=== PATIENT | female | born 1940 | race Caucasian/White ===

== ENCOUNTER → 2019-02-01 | Outpatient (CLI) | payer MEDICAID | LOC: RAD 16:19 | DX: S82.031A Displaced transverse fracture of right patella, initial encounter for closed fracture (principal); W19.XXXA Unspecified fall, initial encounter; M25.532 Pain in left wrist ==

== ENCOUNTER → 2019-05-18 | Outpatient (CLI) | payer MEDICARE | LOC: MAMMO 15:15 | DX: Z12.31 Encounter for screening mammogram for malignant neoplasm of breast (principal) ==

== ENCOUNTER → 2019-05-18 | Outpatient (CLI) | payer MEDICARE | LOC: RAD 15:25 | DX: S82.031A Displaced transverse fracture of right patella, initial encounter for closed fracture (principal); G46.4 Cerebellar stroke syndrome; G93.9 Disorder of brain, unspecified; I63.9 Cerebral infarction, unspecified; W19.XXXA Unspecified fall, initial encounter ==

== ENCOUNTER → 2019-06-22 | Outpatient (CLI) | payer MEDICARE ==
[2019-06-22 16:31] LABS: URINE APPEARANCE HAZY; URINE BILIRUBIN NEGATIVE (NEGATIVE); URINE BLOOD NEGATIVE (NEGATIVE); URINE COLOR YELLOW; URINE GLUCOSE NEGATIVE (NEGATIVE); URINE KETONE NEGATIVE (NEGATIVE); URINE LEUKOCYTE ESTERASE TRACE (NEGATIVE); URINE NITRATE POSITIVE (NEGATIVE); URINE PROTEIN(semi-quant) TRACE mg/dL (NEGATIVE); URINE UROBILINOGEN NORMAL (NORMAL)
[2019-06-22 16:32] LABS: URINE MUCUS PRESENT (NOT PRESENT)
== END ==
LOC: LAB 15:20
PROVIDERS: Family Medicine
DX: R30.0 Dysuria (principal)

== ENCOUNTER 2019-06-25 15:00 | Outpatient (RCR) | payer MEDICARE | END 2019-06-25 15:30 | LOC: PT 15:00 | DX: R53.81 Other malaise (principal); W19.XXXA Unspecified fall, initial encounter ==

== ENCOUNTER → 2019-07-15 | Outpatient (CLI) | payer MEDICARE | LOC: RAD 16:15 | DX: M19.072 Primary osteoarthritis, left ankle and foot (principal) ==

== ENCOUNTER → 2019-08-06 | Outpatient (CLI) | payer MEDICARE ==
[2019-08-06 15:50] LABS: BASO # 0.1 (0.02-0.10); EOS # 0.4 (0.04-0.40); EOS % 6.4 % (1.0-5.0); HEMATOCRIT 44.9 % (37.0-47.0); HEMOGLOBIN 14.9 g/dL (12.5-16.0); LYMPH# 0.9 (1.50-4.00); MEAN CELL VOLUME 91 fl (78-100); MEAN CORPUSCULAR HEMOGLOBIN 30 pg (27-31); MEAN CORPUSCULAR HGB CONC 33 g/dL (33-37); MONO # 0.6 (0.20-0.80); NEU # 4.4 (1.40-6.50); PLATELET COUNT 272 K/mm3 (130-400); RED BLOOD COUNT 4.92 M/mm3 (4.10-5.30); RED CELL DISTRIBUTION WIDTH 14.5 % (11.5-14.5); WHITE BLOOD COUNT 6.4 K/mm3 (4.8-10.8)
[2019-08-06 16:02] LABS: POTASSIUM 3.7 mmol/L (3.5-5.1)
[2019-08-06 16:03] LABS: CALCIUM 9.7 mg/dL (8.3-10.5)
[2019-08-06 16:04] LABS: TOTAL PROTEIN 7.5 g/dL (6.2-8.1)
[2019-08-06 16:06] LABS: TOTAL BILIRUBIN 0.6 mg/dL (0.2-1.2)
== END ==
LOC: LAB 15:28
PROVIDERS: Family Medicine
DX: E03.9 Hypothyroidism, unspecified (principal); R10.9 Unspecified abdominal pain

== ENCOUNTER 2019-08-22 14:24 | Emergency (ER) | payer MEDICARE ==
[2019-08-22] MEDS ORDERED: HCTZ 25MG25 MG PO (14:45)
[2019-08-22] MEDS ORDERED: LEVOTHYROXINE125 MCG PO (14:45)
[2019-08-22] MEDS ORDERED: TYLENOL EXTRA500 M2 PO (14:45)
[2019-08-22] MEDS ORDERED: JANUVIA 100MG100 MG PO (14:46)
[2019-08-22] MEDS ORDERED: DITROPAN 5MG TAB5 MG PO (14:46)
[2019-08-22] MEDS ORDERED: ACID REDUCER 1150 MG PO (14:46)
[2019-08-22] MEDS ORDERED: POTASSIUM CHLO20 ME3 PO (14:47)
[2019-08-22] MEDS ORDERED: VENLAFAXINE HY150 MG PO (14:47)
[2019-08-22 15:05] LABS: HEMATOCRIT 47.4 % (37.0-47.0); HEMOGLOBIN 15.7 g/dL (12.5-16.0); MEAN CELL VOLUME 91 fl (78-100); MEAN CORPUSCULAR HEMOGLOBIN 30 pg (27-31); MEAN CORPUSCULAR HGB CONC 33 g/dL (33-37); MEAN PLATELET VOLUME 10.4 fl (7.4-10.4); PLATELET COUNT 302 K/mm3 (130-400); RED CELL DISTRIBUTION WIDTH 14.6 % (11.5-14.5); WHITE BLOOD COUNT 8.2 K/mm3 (4.8-10.8)
[2019-08-22 15:15] LABS: ALBUMIN 4.1 g/dL (3.4-4.8)
[2019-08-22 15:16] LABS: POTASSIUM 3.6 mmol/L (3.5-5.1)
[2019-08-22 15:17] LABS: CALCIUM 9.7 mg/dL (8.3-10.5)
[2019-08-22 15:18] LABS: TOTAL PROTEIN 7.3 g/dL (6.2-8.1)
[2019-08-22 15:20] LABS: TOTAL BILIRUBIN 1.6 mg/dL (0.2-1.2)
[2019-08-22 15:25] LABS: NEUTROPHILS 79 % (42-75)
[2019-08-22 15:26] LABS: LYMPHOCYTE 10 % (20-51); MONOCYTE 9 % (3-10)
[2019-08-22 16:26] LABS: URINE COLOR YELLOW
[2019-08-22 16:27] LABS: URINE APPEARANCE HAZY
[2019-08-22 16:28] LABS: URINE BILIRUBIN NEGATIVE (NEGATIVE); URINE BLOOD TRACE (NEGATIVE); URINE GLUCOSE NEGATIVE (NEGATIVE); URINE KETONE NEGATIVE (NEGATIVE); URINE LEUKOCYTE ESTERASE NEGATIVE (NEGATIVE); URINE NITRATE NEGATIVE (NEGATIVE); URINE PROTEIN(semi-quant) 1+ mg/dL (NEGATIVE); URINE UROBILINOGEN NORMAL (NORMAL)
[2019-08-22 19:05] VITALS: BP 128/79
== END 2019-08-22 19:05 | disposition other institution (70) ==
LOC: ED 14:24
PROVIDERS: Family Medicine
DX: G45.9 Transient cerebral ischemic attack, unspecified (principal); E11.9 Type 2 diabetes mellitus without complications; N39.0 Urinary tract infection, site not specified; Z91.14 Patient's other noncompliance with medication regimen; Z79.84 Long term (current) use of oral hypoglycemic drugs

== ENCOUNTER 2019-08-22 18:52 | Inpatient (IN) | payer MEDICARE ==
[~2019-08-22] VITALS: Ht 160 cm; Wt 85.7 kg
[~2019-08-22 18:52] MED LIST: ACID REDUCER 1150 MG PO; DITROPAN 5MG TAB5 MG PO; HCTZ 25MG25 MG PO; JANUVIA 100MG100 MG PO; LEVOTHYROXINE125 MCG PO; POTASSIUM CHLO20 ME3 PO; TYLENOL EXTRA500 M2 PO; VENLAFAXINE HY150 MG PO
--- NOTE | 2019-08-22 19:28 | NUR ---
TO ROOM 202 VIA W/C FROM ER. SON AND [id number] PRESENT. PATIENT HAS HAD RECENT TROUBLE WITH FEET; WHEN STANDING SHE TENDS TO WALK ON THE OUTSIDE OF FEET. SON STATES "THEY DON'T GO FLAT." PATIENT DOES REPORT CRAMPING THAT TURNS FEET INWARD INTERMITTENTLY.
--- NOTE | 2019-08-22 19:32 | NUR ---
REPORT PROVIDED TO CHANDANA QUIJANO.
[2019-08-22 19:56] VITALS: BP 128/79
--- NOTE | 2019-08-22 21:00 | NUR ---
Pt a/o x 3, answered orientation questions appropriately. Answered admission questions with some hesitation on health. At times pt facial expressions had look of confusion. Son and [id number] at bedside.
--- NOTE | 2019-08-22 21:48 | NUR ---
IV catheter started on 3rd attempt in left wrist, using a 22 gauge IV catheter by Geneva Douglas RN. Tolerated without difficulty. Son and [id number] left facility at 2109. Bed alarm set and call light with in reach of pt.
--- NOTE | 2019-08-22 22:00 | NUR ---
Offered to help pt reposition, pt declined.
[2019-08-22 23:19] VITALS: BP 114/75
--- NOTE | 2019-08-22 23:36 | NUR ---
C/o of lower back and coccyx hurting. Given tylenol 650mg PO per pt request. Given saltine crackers.
--- NOTE | 2019-08-23 01:45 | NUR ---
Q hourly checks done. Bed alarm set and call light with in reach of pt. IV fluids of 1/2 NS infusing at 100mls/hr. When asked pt stated she still has pain in her coccyx. Agreed to reposition. Pt repositioned on to left side. Depends dry, denied need to urinate.
[2019-08-23 02:47] VITALS: BP 108/64
--- NOTE | 2019-08-23 05:40 | NUR ---
C/o of lower back, sacrum and coccyx hurting. Allevyn foam dressing CDI on coccyx. Offered tylenol, declined
[2019-08-23 06:00] VITALS: BP 111/74
--- NOTE | 2019-08-23 06:33 | NUR ---
C/o of IV sit hurting when touched. No redness or swelling noted. IV catheter flushed with normal saline without difficulty. No c/o's of pain voiced when IV catheter flushed. Warm blanket wrapped around left hand, wrist and forearm.
--- NOTE | 2019-08-23 07:45 | NUR ---
REPORT RECEIVED FROM SAMM ELLINGTON
--- NOTE | 2019-08-23 08:00 | NUR ---
PATIENT'S SHIFT ASSESSMENT COMPLETE. PATIENT ALERT AND ORIENTED X4. STATES "I'M FEELING BETTER THAN I DID YESTERDAY" NEURO ASSESSMENT WITHIN NORMAL LIMITS. PERRLA. PATIENT ANSWERS ALL QUESTIONS APPROPRIATELY. SEEMS TO BE TRACKING WELL. PATIENT HAS 1/2 NORMAL SALINE INFUSING AT 100 MLS/HR. PATIENT DENIES ANY PAIN OR DISCOMFORTS AT THIS TIME. STATES "MY BOTTOM WAS REALLY HURTING BUT IT FEELS OKAY RIGHT NOW" PATIENT HAS MEPILEX FOAM TO COCCYX. MEPILEX FOAM TO LEFT LATERAL ANKLE. DENIES SHORTNESS OF BREATH OR DIFFICULTIES BREATHING. PATIENT'S CALL LIGHT WITHIN REACH. CHAIR ALARM ON.
--- NOTE | 2019-08-23 08:30 | NUR ---
SAMM OLSEN REPORTS GOING INTO PATIENT'S ROOM TO GIVE MEDICATIONS. REPORTS PATIENT HAD MOUTH FULL OF FOOD. REPORTS THAT PATIENT DIDN'T PUT IN UPPER DENTURES BEFORE EATING BREAKFAST WAS HAVING A HARD TIME CHEWING FOOD. REPORTED THAT SHE KEPT FOOD IN MOUTH AND INSTEAD OF FINISHING BITE OR SPITTING IT OUT JUST CONTINUED TO TAKE BITES OF FOOD AND HAD MOUTH FULL OF FOOD. PATIENT ASSISTED WITH CLEANING FOOD OUT OF MOUTH AND PUTTING IN TOP DENTURES. PER REPORT PATIENT SWALLOWED PILLS FINE AND DID OKAY WITH SWALLOWING AFTER.
[2019-08-23 11:00] VITALS: BP 134/80
--- NOTE | 2019-08-23 14:54 | NUR ---
IN TO SEE PATIENT. PROTONIX ORDERED. NOTIFIED THAT ST IS COMING IN TO WATCH PATIENT EAT MEAL TOMORROW. NOTIFIED THAT PATIENT IS NOT ON ANY BLOOD THINNER AND THAT ACCORDING TO PATIENT'S HOME MEDICATION LIST PATIENT TAKES EFFEXOR. REPORTS THAT SHE IS WAITING FOR ECHO AND CAROTID DOPPLER TO COME BACK BEFORE ORDERING BLOOD THINNER AND IS GOING TO ORDER EFFEXOR.
--- NOTE | 2019-08-23 15:30 | NUR ---
PATIENT SIGNED DPOA PAPERWORK AT THIS TIME. THIS NUE AND LUCÍA SANDERSON WITNESSING. NOTARY PRESENT.
[2019-08-23 15:32] VITALS: BP 127/78
[2019-08-23 18:22] VITALS: BP 127/62
--- NOTE | 2019-08-23 19:10 | NUR ---
Report received from Shannon QUIJANO. Up in recliner watching TV. A/O x4. Denies pain. 1/2 NS infusing via pump at 100 ML/HR. Site to [facility] patent. Assessment completed. States has an occasional cough of "clear sputum". Up with 2:1 assist and walker. Gait unsteady, needs cueing and redirection with using walker. Takes hand off walker and tries to use furniture, tries to use walker to pull herself up from sitting to standing position and tries to sit down too quickly before reaching the toilet, chair or bed. Mepilex dressing CDI to Coccyx region.
--- NOTE | 2019-08-23 19:15 | NUR ---
REPORT GIVEN TO LEE MILLS LPN
--- NOTE | 2019-08-23 21:32 | NUR ---
Had been incontinent and up to void x3 since 1899. Mainly incontinent in brief and voided 100 ML of clear yellow urine in collection container. Neelima cares provided by staff. Assisted to bed with bed alarm on. Call light in reach. SCD's in place to BLE.
[2019-08-23 22:40] VITALS: BP 147/77
[2019-08-24 02:38] VITALS: BP 152/85
--- NOTE | 2019-08-24 03:44 | NUR ---
New bag of IVF hung. Rests with eyes closed. Calls for assist to BR PRN and is incontinent of urine each time.
--- NOTE | 2019-08-24 06:06 | NUR ---
Awaken for vital signs and AM medications. Requests analgesic. States has pain in her stomach. Tylenol taken with AM medications. Swallows without difficulty. Has been incontinent of urine each time she has been up to BR. A/O x4 but continues to need cueing and instruction for safe transfers.
[2019-08-24 06:13] VITALS: BP 149/71
[2019-08-24 07:10] LABS: BASO # 0.1 (0.02-0.10); EOS # 0.4 (0.04-0.40); EOS % 6.4 % (1.0-5.0); HEMATOCRIT 41.5 % (37.0-47.0); HEMOGLOBIN 13.6 g/dL (12.5-16.0); LYMPH# 0.9 (1.50-4.00); MEAN CELL VOLUME 92 fl (78-100); MEAN CORPUSCULAR HEMOGLOBIN 30 pg (27-31); MEAN CORPUSCULAR HGB CONC 33 g/dL (33-37); MEAN PLATELET VOLUME 10.7 fl (7.4-10.4); MONO # 0.7 (0.20-0.80); NEU # 3.8 (1.40-6.50); PLATELET COUNT 266 K/mm3 (130-400); RED BLOOD COUNT 4.52 M/mm3 (4.10-5.30); RED CELL DISTRIBUTION WIDTH 14.5 % (11.5-14.5); WHITE BLOOD COUNT 5.8 K/mm3 (4.8-10.8)
[2019-08-24 07:13] LABS: ALBUMIN 3.3 g/dL (3.4-4.8); POTASSIUM 3.7 mmol/L (3.5-5.1)
[2019-08-24 07:16] LABS: TOTAL PROTEIN 6.2 g/dL (6.2-8.1)
[2019-08-24 07:17] LABS: TOTAL BILIRUBIN 0.6 mg/dL (0.2-1.2)
--- NOTE | 2019-08-24 07:30 | NUR ---
Report to Teresa QUIJANO.
--- NOTE | 2019-08-24 07:42 | NUR ---
Dr. Locke at bedside.
--- NOTE | 2019-08-24 09:10 | NUR ---
Pt chair alarm sounding. This nurse enters room and pt had transferred self from chair to bed was partially side ways with legs still hanging off bed. Pt educated on safety and use of call light and staff asssitance. Pt assisted into bed and bed alarm set and call light in reach
[2019-08-24 11:11] VITALS: BP 128/73
[2019-08-24 15:15] VITALS: BP 133/61
--- NOTE | 2019-08-24 16:00 | NUR ---
Dressing to coccyx removed at time of shower this afternoon. Reports pain to coccyxy. Left side of sacrum is reddened, skin is intact and blanchable. Right side of sacrum is reddened, open area with sheering like appearance noted. Mepilex applied to right side of sacrum. Education provided, instructed patient to turn side to side every two hours while in bed. Patient verbalizes understanding and denies questions. Turns herself on to right side with pressure off of open reddened area. Fall precautions in place.
--- NOTE | 2019-08-24 18:05 | NUR ---
Dr. Locke at bedside to discuss plan of care with patient and son.
[2019-08-24 18:33] VITALS: BP 136/83
--- NOTE | 2019-08-24 20:28 | NUR ---
ASSMNT COMPLETE, PT APPEARS TO BE CONFUSED BUT PLEASANT, KNOWS SHE ISN'T AT HOME BUT UNSURE OF TOWN AND DATE, IS FORCEFULLY COUGHING, UNPRODUCTIVE, DENIES PAIN, CALL LIGHT W/I REACH
[2019-08-24 23:08] VITALS: BP 160/78
[2019-08-25] VITALS (7 sets, daily range): BP systolic 127–172; BP diastolic 62–87
--- NOTE | 2019-08-25 10:40 | NUR ---
Pt's son, Trevor, came by to speak with Case Management about pt's discharge plan. Pt told son that she was going to be going home on 08/[address] Locke and son have concerns for pt returning to her home alone. They feel pt would be more appropriate for [facility] level of care at this time. Pt recently sold her home in [place] and moved to [place] and lives alone in an apartment. lead project manager has concerns because pt has been hoarding things and using oven for storage. Pt's son lives [place] [address] [facility]. Pt is apprehensive about going to a NH because of things she has heard in the news. 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 Son still feels as though pt in not safe to return home alone and is unable to have pt come live with him and his . Pt does not have the finances to self-pay. DPOA for medical and finances was signed for pt's son. Trevor was able to get access to pt's banking documents. Medicaid application was completed 08/24 with son's assistance. Application faxed 08/24. Pt's son would prefer pt in [facility] close to him. Pt has some sisters who live in [place] and Trevor would like his mother placed near enough for them to visit. Son's first choice for NH would be in [facility]. Spoke with [facility] and right now they are not a preferred provider through [facility]. Son's second choice [facility] in [facility]. Call placed to [facility], however they do not have any bed availability at this time. [facility] in [place] is son's third choice but lengthy distance (23miles) from his home. Called placed to [place] and clinical information faxed. Spoke with Florecita, from [facility], on 08/24. Pt's IP stay is approved for 3 days. Re-review needed 08/25.
--- NOTE | 2019-08-25 15:27 | NUR ---
Updated clinical faxed to Florecita, with [facility]. Spoke with Mike from [facility] and they are working on getting pre-certification for SNF LOC for pt with [facility]. REF#[id number]. Discussed this with Florecita and she will call Mike to make sure he is putting the request in correctly. Son and pt updated on current plan of care. [facility] is son's second choice. Left message for [facility], [facility], following up on possible admission to them tomorrow. Pt's cuydtrer-pg-zoo, Melany, is planning on visiting [facility] this evening.
--- NOTE | 2019-08-25 16:10 | NUR ---
Dr. Locke notified of bradycardia.
--- NOTE | 2019-08-25 16:35 | NUR ---
TRANSIT COACH OPERATOR reports patient is having difficulty speaking. Patient is resting supine in bed. Patient has expressive aphasia and slurred speech. Oriented to self only. Dr. Locke notified. New orders obtained.
--- NOTE | 2019-08-25 16:50 | NUR ---
Angélica Veliz PA-C at bedside.
--- NOTE | 2019-08-25 16:53 | NUR ---
Patient to CT via wheelchair.
[2019-08-25 16:54] LABS: EOS # 0.4 (0.04-0.40); EOS % 5.6 % (1.0-5.0); HEMOGLOBIN 12.8 g/dL (12.5-16.0); LYMPH# 0.8 (1.50-4.00); MEAN CELL VOLUME 92 fl (78-100); MEAN CORPUSCULAR HEMOGLOBIN 30 pg (27-31); MEAN CORPUSCULAR HGB CONC 33 g/dL (33-37); MEAN PLATELET VOLUME 10.5 fl (7.4-10.4); MONO # 0.5 (0.20-0.80); NEU # 4.5 (1.40-6.50); PLATELET COUNT 277 K/mm3 (130-400); RED BLOOD COUNT 4.23 M/mm3 (4.10-5.30); RED CELL DISTRIBUTION WIDTH 14.4 % (11.5-14.5); WHITE BLOOD COUNT 6.2 K/mm3 (4.8-10.8)
[2019-08-25 17:00] LABS: ALBUMIN 3.3 g/dL (3.4-4.8)
[2019-08-25 17:01] LABS: POTASSIUM 3.9 mmol/L (3.5-5.1); SODIUM 139 mmol/L (136-145)
[2019-08-25 17:02] LABS: CALCIUM 9.5 mg/dL (8.3-10.5)
[2019-08-25 17:03] LABS: GLUCOSE 115 mg/dL (65-105); TOTAL PROTEIN 6.2 g/dL (6.2-8.1)
[2019-08-25 17:04] LABS: CARBON DIOXIDE 22 mmol/L (23-31)
[2019-08-25 17:05] LABS: TOTAL BILIRUBIN 0.4 mg/dL (0.2-1.2)
[2019-08-25 17:08] LABS: AST-SGOT 16 U/L (5-34)
[2019-08-25 17:09] LABS: ALT/SGPT 15 U/L (0-55)
[2019-08-25 17:16] LABS: TROPONIN-I < 0.03 ng/mL (<0.030)
--- NOTE | 2019-08-25 17:38 | NUR ---
Dr. Locke at bedside.
--- NOTE | 2019-08-25 19:10 | NUR ---
Report received from Teresa Winchester RN
[2019-08-25 19:36] LABS: URINE APPEARANCE CLEAR; URINE COLOR YELLOW
[2019-08-25 19:37] LABS: URINE BILIRUBIN NEGATIVE (NEGATIVE); URINE BLOOD NEGATIVE (NEGATIVE); URINE GLUCOSE NEGATIVE (NEGATIVE); URINE KETONE NEGATIVE (NEGATIVE); URINE LEUKOCYTE ESTERASE 1+ (NEGATIVE); URINE NITRATE NEGATIVE (NEGATIVE); URINE PROTEIN(semi-quant) TRACE mg/dL (NEGATIVE); URINE UROBILINOGEN NORMAL (NORMAL)
--- NOTE | 2019-08-25 21:09 | NUR ---
Ambulated to the bathroom. Used gait belt and walker, silk presser socks on. Dressing on right upper coccxy/sacrum changed. First layer skin off. Underlining skin bright pink, zero drainage. Left upper coccyx/sacrum skin intact, color dark pink. Dressing on left outer ankle CDI.
[2019-08-26 03:57] VITALS: BP 147/77
[2019-08-26 06:21] VITALS: BP 145/72
--- NOTE | 2019-08-26 07:14 | NUR ---
Report given to Teresa Winchester RN.
[2019-08-26] MEDS ORDERED: HCTZ 25MG25 MG PO (08:48)
[2019-08-26] MEDS ORDERED: VENLAFAXINE HY150 MG PO (08:48)
[2019-08-26] MEDS ORDERED: TYLENOL EXTRA500 M2 PO (08:48)
[2019-08-26] MEDS ORDERED: POTASSIUM CHLO20 ME3 PO (08:48)
[2019-08-26] MEDS ORDERED: ASPIR LOW81 MG PO (08:49)
[2019-08-26] MEDS ORDERED: ACID REDUCER 1150 MG PO (08:49)
[2019-08-26] MEDS ORDERED: JANUVIA 100MG100 MG PO (08:49)
[2019-08-26] MEDS ORDERED: LEVOTHYROXINE125 MCG PO (08:49)
[2019-08-26] MEDS ORDERED: DITROPAN 5MG TAB5 MG PO (08:49)
[2019-08-26 11:05] VITALS: BP 166/89
[2019-08-26 14:59] VITALS: BP 160/75
[2019-08-26] MEDS ORDERED: CEFDINIR300 MG PO (15:34)
[2019-08-26 15:56] VITALS: BP 160/75
--- NOTE | 2019-08-26 16:09 | NUR ---
Patient alert and oriented. Denies pain. Denies dizziness or shortness of breath. INT d/c. Mepilex to left lateral ankle is CDI. Dressing to right side of coccyx is CDI. Left side of coccyx is reddened, skin intact, blanchable. Patient's son present at bedside. Patient discharged to [facility]. Son to transport by POV. Out of facility via wheelchair. Transfers into POV without incident. Steady gait noted. Nurse to nurse report called to nurse Kathy at [facility].
== END 2019-08-26 16:09 | DRG 690 ==
LOC: MED/SURG 18:52
PROVIDERS: Family Medicine; ADMIT Family Medicine
DX: N39.0 Urinary tract infection, site not specified (principal); E11.9 Type 2 diabetes mellitus without complications; E03.9 Hypothyroidism, unspecified; K21.9 Gastro-esophageal reflux disease without esophagitis; F32.9 Major depressive disorder, single episode, unspecified; F03.90 Unspecified dementia, unspecified severity, without behavioral disturbance, psychotic disturbance, mood disturbance, and anxiety; R53.81 Other malaise; Z91.19 Patient's noncompliance with other medical treatment and regimen; Z91.81 History of falling
CPT/HCPCS: A4216; J0696